=== PATIENT | male | born 1960 | race African-American/Black ===

== ENCOUNTER → 2022-01-24 12:22 | Outpatient (CLI) | payer OTHER, SELFPAY ==
--- NOTE | ~2022-01-24 | XR_ITS ---
XR foot RT min 3V DATE: 01/24/2022 12:49 INDICATION: Injury and pain of right foot, especially fifth digit area TECHNIQUE: 4 views of right foot COMPARISON: None FINDINGS: There is a slightly posteriorly displaced fracture of the distal shaft of the proximal phal anx of the fifth digit. No other fracture or dislocation. 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 Slight plantar calcaneal enthesopathy. IMPRESSION: Fracture of distal shaft of proximal phalanx of fifth digit Reviewed, dictated and finalized at location B.
== END ==
PROVIDERS: PCP Physician Assistant; Visit Provider Physician Assistant
DX: S92.511A Displaced fracture of proximal phalanx of right lesser toe(s), initial encounter for closed fracture (principal); X58.XXXA Exposure to other specified factors, initial encounter
CPT/HCPCS: 73630

== ENCOUNTER 2022-04-07 14:08 | Emergency (ER) | payer OTHER, SELFPAY ==
[2022-04-07 14:17] VITALS: BP 103/66; PULSE 87; RESP 18; TEMP 36.2; O2SAT 98
--- NOTE | 2022-04-07 15:43 | ED.WOUNDLAC ---
HPI - Wound/Laceration General Chief Complaint: Wound/Laceration <ALTAGRACIA Leija Last Filed: 04/07/22 18:38> Stated Complaint: post op bleeding from varicose veins <Judi Singer PA-C - Last Filed: 04/07/22 18:38> Time Seen by Provider: 04/07/22 14:52 <ALTAGRACIA Leija Last Filed: 04/07/22 18:38> Source: patient <ALTAGRACIA Leija Last Filed: 04/07/22 18:38> Mode of arrival: EMS <ALTAGRACIA Leija Last Filed: 04/07/22 18:38> Limitations: no limitations <ALTAGRACIA Leija Last Filed: 04/07/22 18:38> History of Present Illness HPI narrative: Patient is a 62-year-old male who presents the ED via EMS with report of postoperative bleeding. Patient had varicose vein surgery this morning by Dr. Marc Ramirez at [facility]. He was able to ambulate after the surgery, but after getting out of his car at home, he developed profuse bleeding from his incision sites. showed me a picture of this bleeding. They contacted Dr. Ramirez's office and was referred to the ED. Bleeding controlled by the time of my evaluation. Patient denies any significant pain. Denies fever. <ALTAGRACIA Leija Last Filed: 04/07/22 18:38> Related Data Allergies/Adverse Reactions: Allergies Allergy/AdvReac Type Severity Reaction Status Date / Time shellfish derived Allergy Intermediate Verified 10/21/19 08:52 <ALTAGRACIA eLija Last Filed: 04/07/22 18:38> Review of Systems Review of Systems: CONSTITUTIONAL: Denies fever, chills, or sweats. SKIN: Reports bleeding from incision sites. MUSCULOSKELETAL: Denies pain. <ALTAGRACIA Leija Last Filed: 04/07/22 18:38> All systems reviewed & are unremarkable except as noted in HPI and below <Judi Singer PA-C - Last Filed: 04/07/22 18:38> FORMERLY [facility], [facility] Past Medical History Medical History: Medical History HLD (hyperlipidemia) HTN (hypertension) <Judi Singer PA-C - Last Filed: 04/07/22 18:38> Surgical History Surgical History: Surgical History (Updated 04/07/22 @ 15:46 by Judi Singer PA-C) H/O varicose vein stripping <Judi Singer PA-C - Last Filed: 04/07/22 18:38> Family History Family History: Family History (System 10/21/19 @ 08:52 by Luisa Velez) Mother Family history of elevated blood lipids Hypertension Father Family history of heart disease in male family member before age 55 <Judi Singer PA-C - Last Filed: 04/07/22 18:38> Social History Social History: Social History Smoking status: Never smoker Alcohol intake: current <Judi Singer PA-C - Last Filed: 04/07/22 18:38> Exam Narrative: GENERAL: Well appearing, well-nourished, non-toxic, in no acute distress. HEAD: Normocephalic, atraumatic. NECK: Supple. No adenopathy, no masses. RESPIRATORY: Airway patent, respirations nonlabored. CARDIOVASCULAR: Regular rate and rhythm without murmurs, rubs, or gallops. Pedal pulses 2+ and equal bilaterally. MUSCULOSKELETAL: Moves all extremities. Strength/ROM intact without gross deformities. Numerous scattered small incisions in medial/distal/posterior thigh of RLE, some incisions with mild amount of swelling surrounding, but nontender. A few incisions with a small amount of serosanguineous oozing/bleeding present. No persistent bleeding from any incisions. SKIN: Warm, dry, normal color. No rashes. NEURO: A&O X3. Speech clear. Cranial nerves II-XII grossly intact. Steady gait. No ataxic movements. PSYCHIATRIC: Appropriate mood and affect. Normal interaction. 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 I agree with the assessment and plan
--- NOTE | 2022-04-07 16:26 | PC.NURSE ---
Patient refusing to have blood work drawn, states I don't think that is necessary. Josh Lau notified.
[2022-04-07 18:20] VITALS: BP 146/96; PULSE 81; RESP 18; O2SAT 98
== END 2022-04-07 18:22 | disposition home or self-care (01) ==
PROVIDERS: Emergency Provider Preventive Medicine Aerospace Medicine; PCP Physician Assistant
DX: L76.22 Postprocedural hemorrhage of skin and subcutaneous tissue following other procedure (principal); E78.5 Hyperlipidemia, unspecified; I10 Essential (primary) hypertension
CPT/HCPCS: 99282

== ENCOUNTER 2022-04-22 16:50 | Emergency (ER) | payer OTHER, SELFPAY ==
[2022-04-22] VITALS (29 sets, daily range): BP systolic 101–147; BP diastolic 69–105; PULSE 91–102; RESP 14–24; TEMP 37.1–37.3; O2SAT 94–99
--- NOTE | ~2022-04-22 | CT_ITS ---
EXAMINATION: CT abdomen pelvis w con DATE: 04/22/2022 19:43 INDICATION: Lower back pain, lower abdominal pain, some scrotom pain TECHNIQUE: Computed tomography (CT) of the abdomen and pelvis was performed with 100 mL Omnipaque-350 intravenous contrast. Automated exposure control and iterative reconstruction technique were employe d. The dose-length product was 1495.72 mGy-cm. COMPARISON: None. FINDINGS: Lower thorax: Small hiatal hernia. Calcified left lobe granuloma. Liver: Left liver lobe cyst. Multiple right lobe hypodensities, too small to characterize. Biliary/Gallbladder: Gallbladder is normal. No bile duct dilation. Pancreas: No mass or duct dilation. Spleen: Normal. Adrenals:No mass. Kidneys: Punctate nonobstructing left hypodensities that may represent tiny nephroliths or vascular c alcification. Left lower pole hypodensity, too small to characterize. No suspicious mass. No hydronep hrosis. GI tract: Distal esophageal and proximal gastric wall edema. No small or large bowel dilation. Normal appendix. Diverticulosis without diverticulitis. Mesentery/Peritoneum: No ascites, mass, or free air. Retroperitoneum: No mass. Atherosclerotic abdominal aortic and/or arterial calcifications. Thin rim o f soft tissue inflammatory change at the distal aorta and iliac arteries in a normal caliber aorta, p resumably related to changes in the adjacent IVC and iliac veins. Lack of contrast filling of the mid and distal inferior vena cava (below the level of the renal veins), iliac veins, and femoral veins, with surrounding inflammatory change. Pelvis: Bladder wall thickening with surrounding inflammatory change. Generalized edema in the pelvic fat. Enlarged, edematous appearing seminal vesicles. Small uncomplicated appearing fat-containing in guinal hernias. Small bilateral hydroceles.. Soft Tissues: Numerous collateral vessels in the subcutaneous fat of the trunk. Bones: No acute osseous finding. IMPRESSION: 1. Esophagitis/gastritis. 2. Findings concerning for IVC thrombosis, extending into the iliac and femoral vessels, with pelvic edema, possibly chronic given the degree of superficial collateralization. 3. Inflammatory change of the distal aortic and iliac artery cope presumably related to the process in the IVC and iliac veins. Aortitis from other etiologies is not excluded. 4. Edema/inflammatory change of the urinary bladder and seminal vesicles may be related to cystitis/v esiculitis or edema from altered venous drainage. Reviewed, dictated and finalized at location K. S PRODUCT SPECIALIST IMPRESSION: 1. Esophagitis/gastritis. 2. Findings concerning for IVC thrombosis, extending into the iliac and femoral vessels, with pelvic edema, possibly chronic given the degree of superficial c ollateralization. 3. Inflammatory change of the distal aortic and iliac artery cope presumably r elated to the process in the IVC and iliac veins. Aortitis from other etiologie s is not excluded. 4. Edema/inflammatory change of the urinary bladder and seminal vesicles may be related to cystitis/vesiculitis or edema from altered venous drainage.
--- NOTE | ~2022-04-22 | XR_ITS ---
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 RESULT: Lines, tubes, and devices: None. Lungs and pleura: Calcified left lower lobe granuloma, otherwise clear. Cardiomediastinal silhouette: Mild aortic ectasia. Other: No acute osseous or upper abdominal finding. IMPRESSION: No acute cardiopulmonary process. Reviewed, dictated and finalized at location K. OPEDICALLY IMPAIRED TEACHER
[2022-04-22 18:18] LABS: Basophils Percent Auto 0.1 % (0.2-1.2); Eosinophils Absolute Auto 0.2 K/mm3 (0-0.3); Eosinophils Percent Auto 1.8 % (0-4.4); Hemoglobin 10.9 g/dL (14.0-18.0); Immature Granulocyte Absolute 0.04 K/mm3 (0.00-0.031); Immature Granulocyte Percent A 0.4 % (0-0.5); Lymphocytes Absolute Auto 1.67 K/mm3 (0.9-3.2); Lymphocytes Percent Auto 14.8 % (18.3-44.2); Mean Corpuscular HGB Conc 32.1 g/dl (32-36); Mean Corpuscular Hemoglobin 27.3 pg (26-34); Mean Platelet Volume 11.3 fl (7.4-10.4); Monocytes Absolute Auto 1.7 K/mm3 (0.1-0.6); Monocytes Percent Auto 15.5 % (2.6-8.5); Neutrophils Absolute Auto 7.6 K/mm3 (1.3-6.7); Neutrophils Percent Auto 67.4 % (45.5-73.1); Platelet Count Result 160 k/mm3 (150-375); Red Cell Distribution Width 16.1 % (11.5-14.5); White Blood Count 11.3 K/mm3 (4.5-10.0)
[2022-04-22 18:29] LABS: INR 1.1; Partial Thromboplastin Time 27.2 SECONDS (22.3-36.8); Prothrombin Time 13.7 Seconds (11.1-14.7)
[2022-04-22 18:30] LABS: Alanine Aminotransferase 48 U/L (6-50); Albumin Level 4.4 g/dL (3.5-5.1); Alkaline Phosphatase 79 U/L (38-126); Anion Gap 7 mmol/L (8-16); Aspartate Amino Transferase 65 U/L (17-59); Bilirubin,Total 0.6 mg/dL (0.2-1.3); Blood Urea Nitrogen 18 mg/dL (9-20); Calcium 8.6 mg/dL (8.4-10.2); Carbon Dioxide 30 mmol/L (22-30); Chloride 98 mmol/L (98-107); Estimated CRCL calculation 68 ml/min; Estimated Glomerular Filt Rate > 60; Glucose 96 mg/dL (65-110); Potassium 3.4 mmol/L (3.4-5.0); Sodium 135 mmol/L (137-145)
[2022-04-22 18:39] LABS: NT Pro B Type Natriuretic Pept 22 pg/mL (5-100)
--- NOTE | 2022-04-22 18:42 | ED.GENADULT ---
HPI - General Adult General Chief complaint: Unspecified Stated complaint: BLE edema Time Seen by Provider: 04/22/22 18:41 Source: patient and family Mode of arrival: ambulatory Limitations: no limitations History of Present Illness HPI narrative: 62 years old -[place] male came to the emergency room with his complaining of swelling legs, scrotal pain, lower back pain for the last 5 days. History of varicose vein surgery of the lower right extremity 2 weeks ago, venous Doppler of the right lower extremity on the of this month came back negative for deep vein thrombosis. History of hypertension and hyperlipidemia. Patient does not smoke or uses drugs, drinks occasionally. Patient denies any history of swelling legs although had history of varicose vein before. Related Data Allergies Allergy/AdvReac Type Severity Reaction Status Date / Time shellfish derived Allergy Intermediate Verified 10/21/19 08:52 Review of Systems Review of Systems: All systems reviewed & are unremarkable except as noted in HPI and below PMFSH Past Medical History Medical History HLD (hyperlipidemia) HTN (hypertension) Surgical History Surgical History H/O varicose vein stripping Family History Family History Mother Family history of elevated blood lipids Hypertension Father Family history of heart disease in male family member before age 55 Social History Social History Smoking status: Never smoker Alcohol intake: current Exam Narrative: General appearance: Well-developed, well-nourished Skin: Normal color, 2+ edema lower extremity bilaterally up to the mid thigh bilaterally Head: Normocephalic, nontraumatic Eyes: Clear conjunctiva ENT: Oropharynx normal, ears normal, nose normal Neck: Supple, nontender Chest and respiratory: Airway patent, no respiratory distress, no accessory muscle use Heart: Regular rate/rhythm Abdomen: Soft, mild diffuse tenderness mainly lower abdomen bilaterally, no organomegaly, quiet bowel sounds scrotal exam showed no acute abnormalities, no swelling, no tenderness, no erythema, Vascular: Normal peripheral pulses, normal capillary refill. 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 Patient also complaining of lower back pain and scrotal discomfort, physical examination did not show any acute abnormality. I believe these symptoms are secondary to edema secondary to thrombosis of the IVC, and iliac veins. IV heparin started, patient to be transferred to [facility], discussed with the vascular surgeon, Dr. Ramirez Consultations Consultation #1: DR RAMIREZ, vascular surgeon, [facility] accepted transfer Date: 04/22/22 Time: 22:08 Vital Signs Vital signs: Vital Signs Temperature 37.1 C 04/22/22 16:53 Pulse Rate 98 04/22/22 16:53 Respiratory Rate 16 04/22/22 16:53 Blood Pressure 147/90 H 04/22/22 16:53 Pulse Oximetry 99 04/22/22 16:53 Oxygen Delivery Room Air 04/22/22 16:53 Temperature 37.1 C 04/22/22 16:53 Pulse Rate 94 04/22/22 18:46 Respiratory Rate 18 04/22/22 18:46 Blood Pressure 141/82 H 03/29
--- NOTE | 2022-04-22 18:43 | ECG_ITS ---
Measurements Intervals [place] Rate: 90 P: -52 MA: 153 QRS: 13 QRSD: 86 T: 2 QT: 355 QTc: 436 Interpretive Statements ECTOPIC ATRIAL RHYTHM ATRIAL PREMATURE COMPLEX NONSPECIFIC T-WAVE ABNORMALITY- INFERIOR LEADS ABNORMAL ECG NO PREVIOUS ECG AVAILABLE FOR COMPARISON Electronically Signed On 04-22-2022 22:09:13 CARBONATION TESTER by Jarred Jarrell D.O.
[2022-04-22] MEDS: HEPARIN SODIUM 5,000 UNITS/ML VIAL 7500 UNITS IV PUSH (21:11)
[2022-04-22] MEDS: HEPARIN SOD/D5W 100 UNITS/ML 25,000 UNITS/250 ML BAG 15 UNITS IV CONT (21:13)
[2022-04-22 21:30] LABS: Appearance Urine Clear (Clear); Bilirubin Urine Negative (Negative); Blood Urine Negative (Negative); Color Urine Yellow (Yellow); Glucose Urine UA Negative (Negative); Ketones Urine Negative (Negative); Leukocyte Esterase Ur Negative LEU/UL (Negative); Nitrate Urine Negative (Negative); Protein Urine Negative (Negative); Specific Grav Ur 1.015 (1.001-1.035); Urobilinogen Urine 0.2 mg/dL (<2.0); pH Urine 5.5 (5.0-9.0)
[2022-04-22 21:39] LABS: Mucus Urine Rare /lpf; RBC Urine 0-2 /hpf (0-2); WBC Urine 0-3 /hpf
[2022-04-22 21:44] LABS: Add Urine Microscopic? NO
[2022-04-22 22:33] LABS: Influenza A QL RT-PCR Negative (Negative); Influenza B QL RT-PCR Negative (Negative); SARS-CoV-2 RNA PCR Negative
--- NOTE | 2022-04-22 23:01 | PC.NURSE ---
Report received from MATEUSZ Go. Assumed care of patient at this time. Patient awaiting transport to arrive.
--- NOTE | 2022-04-22 23:13 | PC.NURSE ---
[id number] here to transfer patient to [facility]. Patient transferred with his chart and belongings. Patient has Heparin drip going via pump.
== END 2022-04-22 23:16 | disposition short-term general hospital (02) ==
PROVIDERS: Emergency Medicine; Emergency Provider Emergency Medicine; PCP Physician Assistant
DX: I82.220 Acute embolism and thrombosis of inferior vena cava (principal); I10 Essential (primary) hypertension; E78.5 Hyperlipidemia, unspecified; I49.1 Atrial premature depolarization; R94.31 Abnormal electrocardiogram [ECG] [EKG]; K20.90 Esophagitis, unspecified without bleeding; K29.70 Gastritis, unspecified, without bleeding; R93.41 Abnormal radiologic findings on diagnostic imaging of renal pelvis, ureter, or bladder
CPT/HCPCS: 36415; 71045; 74177; 80053; 81003; 83880; 85025; 85610; 85730; 87636; 93005; 96365; 96366; 99285; J1644; Q9967